=== PATIENT | female | born 1960 | race Caucasian/White ===

== ENCOUNTER 2017-01-02 13:19 | Outpatient (CLI) | payer OTHER | END 2017-01-02 23:59 | DX: E53.8 Deficiency of other specified B group vitamins (principal); D75.89 Other specified diseases of blood and blood-forming organs ==

== ENCOUNTER 2017-07-26 01:25 | Outpatient (CLI) | payer OTHER ==
[2017-07-26 19:32] LABS: BASOPHILS % (AUTO) 0.3 %; EOSINOPHILS # (AUTO) 0.2 10^3/uL (0.0-0.7); EOSINOPHILS % (AUTO) 2.2 %; HCT - HEMATOCRIT 41.1 % (37.0-47.0); HGB - HEMOGLOBIN 13.7 g/dL (12.0-16.0); LYMPHOCYTES # (AUTO) 2.1 10^3/uL (1.5-3.5); LYMPHOCYTES % (AUTO) 22.8 %; MEAN CORPUSCULAR HEMOGLOBIN 32.1 pg (27.0-31.0); MEAN CORPUSCULAR HGB CONC 33.3 g/dL (32.0-36.0); MEAN CORPUSCULAR VOLUME 96.5 fL (81.0-99.0); MEAN PLATELET VOLUME 8.6 fL (7.9-10.8); MONOCYTES # (AUTO) 0.4 10^3/uL (0.0-1.0); MONOCYTES % (AUTO) 4.3 %; NEUTROPHILS # (AUTO) 6.4 10^3/uL (1.5-6.6); NEUTROPHILS % (AUTO) 70.4 %; RED BLOOD COUNT 4.26 10^6/uL (4.20-5.40); RED CELL DISTRIBUTION WIDTH 13.3 % (12.0-15.0); UNCORRECTED WHITE BLOOD COUNT 9.1 x10^3/uL; WHITE BLOOD COUNT 9.1 x10^3/uL (4.8-10.8)
[2017-07-26 19:45] LABS: CALCIUM 9.3 mg/dL (8.5-10.3); CREATININE 0.8 mg/dL (0.4-1.0)
== END 2017-07-26 01:26 | disposition home or self-care (01) ==
LOC: LAB.N 01:25
PROVIDERS: ATTEND Family Medicine
DX: I10 Essential (primary) hypertension (principal); D75.89 Other specified diseases of blood and blood-forming organs
CPT/HCPCS: 36415; 80048; 80053; 82746; 85025

== ENCOUNTER 2018-01-09 09:39 | Outpatient (CLI) | payer OTHER ==
--- NOTE | 2018-01-09 11:13 | XRAY Report ---
THREE VIEW RIGHT SHOULDER: 01/09/2018 CLINICAL INDICATION: Pain. FINDINGS: Internal and external rotational views and a scapular Y view of the right shoulder demonstrate mild degenerative changes of the acromioclavicular joint. There is no evidence of acute fracture or dislocation. Irregularity of the distal clavicle is noted, likely representing an old, healed fracture. IMPRESSION: MILD DEGENERATIVE CHANGES OF THE ACROMIOCLAVICULAR JOINT. TD: 01/09/2018 11:12
== END 2018-01-09 09:40 | disposition home or self-care (01) ==
LOC: DI.N 09:39
PROVIDERS: ATTEND Family Medicine
DX: M19.011 Primary osteoarthritis, right shoulder (principal)

== ENCOUNTER 2018-04-22 10:33 | Outpatient (CLI) | payer OTHER ==
[2018-04-22 13:32] LABS: BASOPHILS % (AUTO) 0.5 %; EOSINOPHILS # (AUTO) 0.2 10^3/uL (0.0-0.7); EOSINOPHILS % (AUTO) 2.8 %; HGB - HEMOGLOBIN 13.5 g/dL (12.0-16.0); LYMPHOCYTES # (AUTO) 1.8 10^3/uL (1.5-3.5); LYMPHOCYTES % (AUTO) 25.5 %; MEAN CORPUSCULAR HGB CONC 33.5 g/dL (32.0-36.0); MEAN CORPUSCULAR VOLUME 95.5 fL (81.0-99.0); MEAN PLATELET VOLUME 9.1 fL (7.9-10.8); MONOCYTES # (AUTO) 0.3 10^3/uL (0.0-1.0); MONOCYTES % (AUTO) 3.9 %; NEUTROPHILS # (AUTO) 4.7 10^3/uL (1.5-6.6); NEUTROPHILS % (AUTO) 67.3 %; PLT - PLATELET COUNT 212 10^3/uL (130-450); RED BLOOD COUNT 4.21 10^6/uL (4.20-5.40); RED CELL DISTRIBUTION WIDTH 12.6 % (12.0-15.0)
[2018-04-22 13:59] LABS: THYROID STIMULATING HORMONE 3.8 uIU/mL (0.34-5.60)
[2018-04-22 14:01] LABS: FREE T4 (FREE THYROXINE) 0.9 ng/dL (0.58-1.64)
[2018-04-22 14:18] LABS: ALBUMIN 3.6 g/dL (3.2-5.5); ALBUMIN/GLOBULIN RATIO 0.9 (1.0-2.2); ALKALINE PHOSPHATASE 130 IU/L (42-121); ALT ALANINE AMINOTRANSFERASE 25 IU/L (10-60); AST ASPARTATE AMINOTRANSFERASE 23 IU/L (10-42); BILIRUBIN,TOTAL 0.5 mg/dL (0.2-1.0); BUN - BLOOD UREA NITROGEN 13 mg/dL (6-20); CALCIUM 8.8 mg/dL (8.5-10.3); CARBON DIOXIDE - CO2 25 mmol/L (21-32); CHLORIDE 105 mmol/L (101-111); CHOL/HDL RATIO 3.6 (<4.4); CHOLESTEROL 189 mg/dL; CREATININE 0.8 mg/dL (0.4-1.0); GFR - MDRD 74 (>89); GLUCOSE 103 mg/dL (70-100); HDL CHOLESTEROL 52 mg/dL; LDL CHOLESTEROL,CALCULATED 110 mg/dL; LDL/HDL RATIO 2.1 (<4.4); SODIUM 137 mmol/L (135-145); TOTAL PROTEIN 7.4 g/dL (6.7-8.2); VLDL CHOLESTEROL 27 mg/dL
== END 2018-04-22 10:34 | disposition home or self-care (01) ==
LOC: LAB.N 10:33
PROVIDERS: ATTEND Family Medicine
DX: R53.83 Other fatigue (principal); E66.9 Obesity, unspecified
CPT/HCPCS: 36415; 80050; 80061; 83721; 84439

== ENCOUNTER 2018-10-17 08:31 | Outpatient (CLI) | payer OTHER ==
--- NOTE | 2018-10-17 11:50 | Mammography Report ---
Reason: UNSPECIFIED LUMP IN THE RIGHT BREAST,UPPER OUTER Q Procedure Date: 10/17/2018 Accession Number: [id number] / [id number] Procedure: ELENA - Diagnostic Dig Bilat CPT Code: FULL RESULT: EXAM: Diagnostic Dig Bilat DATE: 10/17/2018 9:51 AM CLINICAL HISTORY: Painful palpable lump in the right breast. Diagnostic mammogram. TECHNIQUE: Bilateral CC and MLO as well as laterally exaggerated cc views were obtained. Focused right breast ultrasound was performed. COMPARISON: 04/08/2014 through 02/20/2010. FINDINGS: The breasts demonstrate diffuse fatty replacement bilaterally. There has been no interval change in the right breast 10:00 1.2 cm well-circumscribed nodule with fatty hilum, 8 cm from the nipple. Mammographic appearance is consistent with a lymph node. Focused right breast ultrasound reveals a normal-appearing lymph node which measures up to 1.2 cm in the right breast at the same location. No suspicious mass, calcification or architectural distortion is identified. IMPRESSION: Benign findings RECOMMENDATION: Recommend routine annual Screening mammography unless otherwise clinically indicated. BIRADS CATEGORY 2: Benign findings STANDARD QUALIFYING STATEMENTS: 1. This examination was not reviewed with the aid of Computer-Aided Detection (CAD). 2. A negative or benign imaging report should not delay biopsy if clinically suspicious findings are present. Consider surgical consultation if warrented. More than 5% of cancers are not identified by imaging. 3. Dense breasts may obscure an underlying neoplasm. 4. This examination was reviewed with the aid of 3D imaging (tomography).
== END 2018-10-17 08:32 | disposition home or self-care (01) ==
LOC: DI 08:31
PROVIDERS: ATTEND Family Medicine
DX: N63.11 Unspecified lump in the right breast, upper outer quadrant (principal); N64.4 Mastodynia
CPT/HCPCS: 76642; 77066

== ENCOUNTER 2018-10-29 08:00 | Outpatient (CLI) | payer OTHER ==
[2018-10-29 19:07] LABS: CALCIUM 8.7 mg/dL (8.5-10.3); CREATININE 0.8 mg/dL (0.4-1.0)
== END 2018-10-29 23:59 | disposition home or self-care (01) ==
LOC: LAB.N 08:00
PROVIDERS: ATTEND Physician Assistant Medical
DX: I10 Essential (primary) hypertension (principal)
CPT/HCPCS: 36415; 80048

== ENCOUNTER 2018-10-29 12:31 | Outpatient (CLI) | payer OTHER ==
--- NOTE | 2018-10-30 15:22 | DEXA Report ---
Reason: POSTMENOPAUSAL STATE Procedure Date: 10/29/2018 Accession Number: [id number] / [id number] Procedure: DEX - Dexa Spine and/or Hip CPT Code: FULL RESULT: EXAM: Dexa Spine and/or Hip DATE: 10/29/2018 2:39 PM CLINICAL HISTORY: POSTMENOPAUSAL STATE TECHNIQUE: Dual energy x-ray absorptiometry (DXA) was performed on a [employer] System. Regions measured are the AP Spine, femoral neck, and if needed forearm. COMPARISON: None. In accordance with the International Society for Clinical Densitometry (ISCD) guidelines, data from previous exams may be reanalyzed using current recommendations and techniques. This is done to allow a more accurate basis for comparison with the current study. FINDINGS: The data for the lumbar spine is as follows: BMD (g/cm/cm) T-SCORE Z-SCORE REGION L1 1.087 -0.4 -0.5 L2 1.165 -0.3 -0.4 L3 1.204 0.0 -0.1 L4 1.188 -0.1 -0.2 TOTAL 1.164 -0.1 -0.3 NOTE: All evaluable vertebrae are used for classification The data for the hip is as follows: BMD (g/cm/cm) T-SCORE Z-SCORE REGION Neck 0.839 -1.4 -1.1 TOTAL 0.983 -0.2 -0.2 NOTE: The femoral neck or total proximal femur, whichever is lowest, is used for classification. IMPRESSION: THE WHO CLASSIFICATION BASED ON THE INTERNATIONAL REFERENCE STANDARD IS OSTEOPENIA. THE FRACTURE RISK IS INCREASED. RECOMMENDATION: Patients with diagnosis of osteoporosis or osteopenia should have regular bone mineral density assessment. For those eligible for Medicare, routine testing is allowed once every 2 years. Testing frequency can be increased for patients who have rapidly progressing disease or for those who are receiving medical therapy to restore bone mass. COMMENT: World Health Organization (WHO) definitions for osteoporosis and osteopenia: NORMAL BMD: T-score at -1.0 or higher, fracture risk is low OSTEOPENIA BMD: T-score between -1.0 and -2.5, fracture risk is increased. OSTEOPOROSIS BMD: T-score at -2.5 or lower, fracture risk is high. National Osteoporosis Foundation recommends: 1. Obtain adequate dietary calcium (at least 1200 mg per day) and vitamin D (400-800 international units per day). 2. Participate, as appropriate, in regular weightbearing and muscle-strengthening exercise. 3. Avoid tobacco use and reduce alcohol and caffeine intake. 4. For more detailed information see the website at www.NOF.org.
== END 2018-10-29 12:32 | disposition home or self-care (01) ==
LOC: DI 12:31
PROVIDERS: ATTEND Family Medicine
DX: M85.89 Other specified disorders of bone density and structure, multiple sites (principal); Z78.0 Asymptomatic menopausal state; I10 Essential (primary) hypertension
CPT/HCPCS: 36415; 77080; 80048

== ENCOUNTER 2020-09-29 23:58 | Observation (INO) | payer OTHER ==
--- NOTE | 2020-09-30 00:21 | ED Physician Documentation ---
PD HPI DYSPNEA - Stated complaint Stated Complaint: SOA - History obtained from History obtained from: Patient - History of Present Illness Timing - onset: How many days ago (4-5) Timing - duration: Days Timing - details: Gradual onset, Waxing and waning Pain level now: 3 (generalized myalgias) Improved by: Rest Worsened by: Exertion Associated symptoms: Fever, Cough. No: Wheezing, Chest pain / discomfort, Bilateral edema, Unilateral edema Recently seen: Not recently seen - Additional information Additional information: c/o 4-5 days of gradual onset but steadily progressive shortness of breath and dyspnea on exertion, cough that is minimally productive despite sensation of chest congestion, chills/diaphoresis and fever. She tells me Tmax was earlier tonight and was 106.6 (she initially says "one point six point six"; when I ask her to repeat, she says "one hundred and six point six". She told RN 104.6). Review of Systems Constitutional: reports: Fever, Chills, Myalgias, Fatigue, Sweats Eyes: reports: Reviewed and negative Ears: reports: Reviewed and negative Nose: reports: Reviewed and negative Throat: reports: Reviewed and negative Cardiac: reports: Reviewed and negative Respiratory: reports: Dyspnea, Cough. denies: Hemoptysis, Wheezing GI: reports: Reviewed and negative : denies: Dysuria, Frequency Skin: reports: Reviewed and negative Musculoskeletal: reports: Reviewed and negative Neurologic: reports: Generalized weakness. 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 - Present Medications Home Medications: Ambulatory Orders Medication Instructions Recorded Confirmed Loratadine 10 mg PO DAILY 07/30/15 09/30/20 Calcium Carbonate [Tums (Calcium 500 - 1,000 mg PO BID PRN 09/30/20 09/30/20 Carbonate 500mg)] Multivit-Min/Iron/Folic/Lutein 1 each PO DAILY 09/30/20 09/30/20 [Multivitamin Women 50 Plus Tab] Terbinafine [Lamisil] 250 mg PO DAILY 09/30/20 09/30/20 - Allergies Allergies/Adverse Reactions: Allergies Allergy/AdvReac Type Severity Reaction Status Date / Time bee venom protein (honey bee) Allergy Severe Anaphylaxis Verified 09/30/20 08:25 Penicillins Allergy Severe Respiratory Verified 07/30/15 21:43 aspirin Allergy Intermediate Hives Verified 07/30/15 21:44 lanolin AdvReac Edema Verified 07/30/15 22:04 latex AdvReac Edema Verified 07/30/15 22:04 - Social History Does the pt smoke?: Yes Smoking Status: Current every day smoker Does the pt drink ETOH?: Yes Does the pt have substance abuse?: No - Immunizations Immunizations are current?: Yes PD ED PE NORMAL - Vitals Vital signs reviewed: Yes - General General: Alert and oriented X 3, Other (morbidly obese; dyspneic with simple conversation but able to speak in full sentences) - HEENT HEENT: Moist mucous membranes - Neck Neck: Supple, no meningeal sign - Cardiac Cardiac: RRR, No murmur - Abdomen Abdomen: Soft, Non tender - Derm Derm: Normal color, Warm and dry - Extremities Extremities: No edema - Neuro Neuro: Alert and oriented X 3 PD ED PE EXPANDED - Respiratory Respiratory: Wheezing (bilateral course expiratory wheezing. bibasilar rhonchi), Rhonchi Results - Vitals Vitals: Oxygen O2 Source Room air - EKG (time done) No standard instances Rate: Rate (enter#) (92) Rhythm: NSR [place]: LAD Intervals: Normal [place] QRS: Poor R wave progression Ischemia: Normal ST segments - Labs Labs: Microbiology 09/30/20 01:15 Blood Culture - Preliminary Blood NO GROWTH AFTER 1 DAY 09/30/20 00:20 Blood Culture - Preliminary Blood NO GROWTH AFTER 1 DAY Laboratory Tests 09/30/20 09/30/20 09/30/20 00:20 00:20 00:20 WBC 9.9 RBC 4.25 Hgb 14.0 Hct 41.0 MCV 96.5 MCH 32.9 H MCHC 34.1 RDW 13.2 Plt Count 218 MPV 9.5 Neut # (Auto) 8.0 H Lymph # (Auto) 1.1 L [place] # (Auto) 0.6 Eos # (Auto) 0.0 Baso # (Auto) 0.0 Absolute Nucleated RBC 0.00 Nucleated RBC % 0.0 Sodium 131 L Potassium 3.5 Chloride 97 L Carbon Dioxide 24 Anion Gap 10.0 BUN 8 Creatinine 1.0 Estimated GFR (MDRD) 57 L Glucose 122 H Lactic Acid 1.0 Calcium 8.7 Total Bilirubin 1.1 H AST 18 ALT 28 Alkaline Phosphatase 123 H Total Protein 7.3 Albumin 3.7 Globulin 3.6 Albumin/Globulin Ratio 1.0 Urine Color Urine Clarity Urine pH Ur Specific [place] Urine Protein Urine Glucose (UA) Urine Ketones Urine Occult Blood Urine Nitrite Urine Bilirubin Urine Urobilinogen Ur Leukocyte Esterase Urine RBC Urine WBC Ur Squamous Epith Cells Urine Bacteria Urine Culture Comments Nasal Adenovirus (PCR) Nasal B. parapertussis DNA (PCR) Nasal Coronavir 229E PCR Nasal Coronavir HKU1 PCR Nasal Coronavir NL63 PCR Nasal Coronavir OC43 PCR Nasal Enterovir/Rhinovir PCR Nasal Influenza B PCR Nasal Influenza A PCR Nasal Parainfluen 1 PCR Nasal Parainfluen 2 PCR Nasal Parainfluen 3 PCR Nasal Parainfluen 4 PCR Nasal RSV (PCR) Nasal B.pertussis DNA PCR Nasal C.pneumoniae (PCR) Yaaz Human Metapneumo PCR Nasal M.pneumoniae (PCR) Nasal SARS-CoV-2 (PCR) 09/30/20 09/30/20 00:20 02:18 WBC RBC Hgb Hct MCV MCH MCHC RDW Plt Count MPV Neut # (Auto) Lymph # (Auto) [place] # (Auto) Eos # (Auto) Baso # (Auto) Absolute Nucleated RBC Nucleated RBC % Sodium Potassium Chloride Carbon Dioxide Anion Gap BUN Creatinine Estimated GFR (MDRD) Glucose Lactic Acid Calcium Total Bilirubin AST ALT Alkaline Phosphatase Total Protein Albumin Globulin Albumin/Globulin Ratio Urine Color YELLOW Urine Clarity HAZY Urine pH 6.5 Ur Specific [place] 1.010 Urine Protein TRACE Urine Glucose (UA) NEGATIVE Urine Ketones NEGATIVE Urine Occult Blood MODERATE H Urine Nitrite NEGATIVE Urine Bilirubin NEGATIVE Urine Urobilinogen 0.2 (NORMAL) Ur Leukocyte Esterase NEGATIVE Urine RBC 6-10 H Urine WBC 0-3 Ur Squamous Epith Cells FEW Squamous Urine Bacteria Few Urine Culture Comments NOT INDICATED Nasal Adenovirus (PCR) NOT DETECTED Nasal B. parapertussis DNA (PCR) NOT DETECTED Nasal Coronavir 229E PCR NOT DETECTED Nasal Coronavir HKU1 PCR NOT DETECTED Nasal Coronavir NL63 PCR NOT DETECTED Nasal Coronavir OC43 PCR NOT DETECTED Nasal Enterovir/Rhinovir PCR NOT DETECTED Nasal Influenza B PCR NOT DETECTED Nasal Influenza A PCR NOT DETECTED Nasal Parainfluen 1 PCR NOT DETECTED Nasal Parainfluen 2 PCR NOT DETECTED Nasal Parainfluen 3 PCR NOT DETECTED Nasal Parainfluen 4 PCR NOT DETECTED Nasal RSV (PCR) NOT DETECTED Nasal B.pertussis DNA PCR NOT DETECTED Nasal C.pneumoniae (PCR) NOT DETECTED Ayaz Human Metapneumo PCR NOT DETECTED Nasal M.pneumoniae (PCR) NOT DETECTED Nasal SARS-CoV-2 (PCR) NOT DETECTED - Rads (name of study) chest xray Radiology: Prelim report reviewed, See rad report PD MEDICAL DECISION MAKING - ED course Complexity details: reviewed results, re-evaluated patient, considered differential, d/w patient Departure - Departure Disposition: ED Place in Observation Clinical Impression: Pneumonia Qualifiers: Pneumonia type: due to unspecified organism Laterality: left Lung location: unspecified part of lung Qualified Code(s): J18.9 - Pneumonia, unspecified organism Condition: Stable Discharge Date/Time: 09/30/20 04:39
[2020-09-30 00:30] LABS: BASOPHILS % (AUTO) 0.3 %; EOSINOPHILS % (AUTO) 0.1 %; LYMPHOCYTES # (AUTO) 1.1 10^3/uL (1.5-3.5); LYMPHOCYTES % (AUTO) 11.6 %; MEAN CORPUSCULAR HEMOGLOBIN 32.9 pg (27.0-31.0); MEAN CORPUSCULAR HGB CONC 34.1 g/dL (32.0-36.0); MEAN CORPUSCULAR VOLUME 96.5 fL (81.0-99.0); MEAN PLATELET VOLUME 9.5 fL (7.9-10.8); MONOCYTES # (AUTO) 0.6 10^3/uL (0.0-1.0); MONOCYTES % (AUTO) 5.6 %; NEUTROPHILS % (AUTO) 81.3 %; PLT - PLATELET COUNT 218 10^3/uL (130-450); RED BLOOD COUNT 4.25 10^6/uL (4.20-5.40); RED CELL DISTRIBUTION WIDTH 13.2 % (12.0-15.0); WHITE BLOOD COUNT 9.9 x10^3/uL (4.8-10.8)
[2020-09-30 00:41] LABS: ALBUMIN 3.7 g/dL (3.2-5.5); BILIRUBIN,TOTAL 1.1 mg/dL (0.2-1.0); CALCIUM 8.7 mg/dL (8.5-10.3); TOTAL PROTEIN 7.3 g/dL (6.7-8.2)
[2020-09-30] MEDS ORDERED: ALBUTEROL 1 PUFF INH STA (01:11)
[2020-09-30 01:24] LABS: C. PNEUMONIAE- RESP PCR PANEL NOT DETECTED
[2020-09-30 02:25] LABS: BILIRUBIN,URINE NEGATIVE (NEGATIVE); GLUCOSE, URINE (UA) NEGATIVE (NEGATIVE); KETONES,URINE (UA) NEGATIVE (NEGATIVE); LEUKOCYTE ESTERASE, URINE NEGATIVE (NEGATIVE); NITRITE,URINE NEGATIVE (NEGATIVE); OCCULT BLOOD,URINE MODERATE (NEGATIVE); PH,URINE 6.5 PH (5.0-7.5); PROTEIN,URINE TRACE mg/dL (NEGATIVE); UROBILINOGEN,URINE 0.2 (NORMAL) E.U./dL (NORMAL)
[2020-09-30 02:29] LABS: CLARITY,URINE HAZY (CLEAR)
[2020-09-30 02:31] LABS: BACTERIA,URINE Few /HPF (None Seen); SQUAMOUS EPITHELIAL CELL,UR FEW Squamous (<= Few)
[2020-09-30] MEDS ORDERED: IBUPROFEN 400 MG TABLET PO STA (02:38)
[2020-09-30] MEDS ORDERED: levoFLOXacin 750 MG/150 ML 750 MG/150 ML BAG IV STA (02:40)
[2020-09-30] MEDS ORDERED: IBUPROFEN 400 MG TABLET PO PRN (03:32)
[2020-09-30] MEDS ORDERED: ONDANSETRON 4 MG/2 ML VIAL IVP PRN (03:32)
[2020-09-30] MEDS ORDERED: SODIUM CHLORIDE FLUSH 0.9% 10 ML SYRINGE IVP PRN (03:32)
--- NOTE | 2020-09-30 03:42 | HISTORY & PHYSICAL EXAMINATION ---
Chief Complaint - Chief Complaint Chief Complaint: Fever, dyspnea, cough History of Present Illness - Admitted From Admitted From:: [facility] ED - History Obtained From Records Reviewed: Yes History obtained from: Patient - History of Present Illness HPI Comment/Other: Patient is a 59-year-old morbidly obese female with medical history significant for hypertension, GERD, hyperlipidemia, morbid obesity, asthma and onychomycosis who presented to the ED with complaint of dyspnea, productive cough and intermittent fever for the past 5 days. She reports wheezing as well. In the ED she was found to have a temperature of 38.9 C. The wheezing was appreciable on auscultation of her lungs and she appeared ill/lethargic. She was noted to be mildly tachycardic with a heart rate as high as 95. Work-up showed a normal lactic acid and normal white blood cell count. However chest x- ray Showed a lingular pneumonia. As a result the patient was presented for admission for further treatment. She reports some musculoskeletal chest pain. She also reports mild nausea and an episode of vomiting yesterday at home. She denies abdominal pain. 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 The patient's mother in 2008 of stomach cancer. Patient's father of pancreatic cancer at a young age. Social History Notes: According to records she lives in [place] in a mobile line home with her with whom she has been for 36 years. They have 2 children. She has 1 daughter who lives on [facility] and a son who lives in [place]. The patient was originally born in [facility] but moved to [facility] when she was younger and was raised in [place]. She has a history of smoking half a pack of cigarettes a day and has been doing so for 25 years. She quit for about 3 months once but then resumed smoking. She drinks alcohol occasionally. Her drink of choice is check [place]. She does not use any recreational substances. - POLST Patient has POLST: No POLST Status: Full Code Meds/Allgy - Home Medications Home Medications: Ambulatory Orders Medication Instructions Recorded Confirmed Calcium Carbonate [Tums] 1 mg PO DAILY 07/30/15 09/30/20 Lisinopril 1 mg PO DAILY 07/30/15 09/30/20 Loratadine 1 mg PO DAILY 07/30/15 09/30/20 Simvastatin 1 mg PO DAILY 07/30/15 09/30/20 Terbinafine [Lamisil] 250 mg PO DAILY 09/30/20 09/30/20 - Allergies Allergies/Adverse Reactions: Allergies Allergy/AdvReac Type Severity Reaction Status Date / Time Penicillins Allergy Severe Respiratory Verified 07/30/15 21:43 aspirin Allergy Intermediate Hives Verified 07/30/15 21:44 lanolin AdvReac Edema Verified 07/30/15 22:04 latex AdvReac Edema Verified 07/30/15 22:04 bee stings Allergy Severe Edema Uncoded 07/30/15 21:44 Review of Systems - Constitutional Constitutional: reports: Fever, Weakness. denies: Fatigue - Eyes Eyes: denies: Pain, Vision loss, Dipolpia - Ears, Nose & Throat Ears, Nose & Throat: denies: Ear pain, Sore throat, Hoarseness - Cardiovascular Cariovascular: denies: Irregular heart rate, Palpitations, Chest pain, Edema, Lightheadedness, Syncope, Exertional dyspnea - Respiratory Respiratory: reports: Cough, Sputum production, Wheezing, SOB at rest - Gastrointestinal Gastrointestinal: reports: Nausea, Vomiting. denies: Abdominal pain, Abdominal distention - Genitourinary Genitourinary: denies: Dysuria, Frequency, Urgency - Musculoskeletal Musculoskeletal: denies: Muscle pain, Back pain, Muscle aches - Integumentary Integumentary: denies: Rash, Pruritis, Lesions - Neurological Neurological: reports: General weakness. denies: Focal weakness, Headache - Psychiatric Psychiatric: denies: Depression, Anxiety - Endocrine Endocrine: denies: Polyuria, Polydypsia - Hematologic/Lymphatic Hematologic/Lymphatic: denies: Anemia, Bruising Prior Level of Functionality: She is independent of activities of daily living Exam - Vital Signs Vital Signs: Vital Signs x48h Temp Pulse Resp BP Pulse Ox 09/30/20 03:10 95 17 156/79 H 92 09/30/20 03:00 38.9 C H 95 17 156/79 H 93 09/30/20 02:30 38.9 C H 95 16 139/83 H 94 09/30/20 02:00 38.9 C H 91 18 159/82 H 93 09/30/20 01:30 38.9 C H 82 20 159/83 H 95 09/30/20 01:08 39.7 C H 92 23 167/70 H 95 09/30/20 01:00 91 23 167/70 H 92 09/30/20 00:41 39.7 C H 95 25 H 162/94 H 95 09/30/20 00:03 39.7 C H 95 25 H 162/94 H 95 - Physical Exam General Appearance: positive: Alert, Mild distress Eyes Bilateral: positive: PERRL, EOMI ENT: positive: Dry mucous membranes Neck: positive: Trachea midline Respiratory: positive: Wheezes, Other (Coarse breath sounds) Cardiovascular: positive: Regular rate & rhythm, No murmur Abdomen: positive: Non-tender, No organomegaly, Nml bowel sounds. negative: Guarding, Rebound Back: positive: Nml inspection Skin: positive: Color nml, No rash, Warm, Dry Extremities: positive: Non-tender, Full ROM, Nml appearance Neurologic/Psychiatric: positive: Oriented x3, Mood/affect nml Conclusion/Plan - Problem List (1) Pneumonia Conclusion/Plan: A lingular pneumonia was noted on chest x-ray. Patient was started on Levaquin 750 mg IV daily. We will continue. DuoNeb breathing treatment has been ordered as needed. We will use ibuprofen as needed for fever. The patient is reluctant to take Tylenol for concern about Lamisil and liver. Covid 19 test was negative. We will order Robitussin for cough. Qualifiers: Pneumonia type: due to unspecified organism Laterality: left Lung loca tion: unspecified part of lung Qualified Code(s): J18.9 - Pneumonia, unspecified organism (2) Onychomycosis Conclusion/Plan: Patient is on Lamisil. (3) Morbid obesity Conclusion/Plan: Chronic. Patient has a BMI of 56.5. - Lab Results Fish Bones: 09/30/20 00:20 09/30/20 00:20 Core Measures - Anticipated LOS I expect patient to be DC'd or transferred within 96 hours.: Yes - DVT/VTE - Prophylaxis VTE/DVT Device ordered at admit?: Yes VTE/DVT Prophylaxis med ordered at admit?: Yes
[2020-09-30] MEDS ORDERED: guaiFENesin 100 MG/5 ML UDC PO PRN (03:51)
[2020-09-30] MEDS: SODIUM CHLORIDE 0.9% 1,000 ML IV SCH ×2 (05:01→15:08)
[2020-09-30 05:25] LABS: BASOPHILS % (AUTO) 0.3 %; EOSINOPHILS % (AUTO) 0.1 %; HGB - HEMOGLOBIN 13.2 g/dL (12.0-16.0); LYMPHOCYTES # (AUTO) 1.3 10^3/uL (1.5-3.5); LYMPHOCYTES % (AUTO) 11.6 %; MEAN CORPUSCULAR HEMOGLOBIN 32.4 pg (27.0-31.0); MEAN CORPUSCULAR HGB CONC 33.1 g/dL (32.0-36.0); MEAN PLATELET VOLUME 9.5 fL (7.9-10.8); MONOCYTES # (AUTO) 0.6 10^3/uL (0.0-1.0); MONOCYTES % (AUTO) 5.4 %; NEUTROPHILS # (AUTO) 9.2 10^3/uL (1.5-6.6); NEUTROPHILS % (AUTO) 81.4 %; PLT - PLATELET COUNT 205 10^3/uL (130-450); RED BLOOD COUNT 4.07 10^6/uL (4.20-5.40); RED CELL DISTRIBUTION WIDTH 13.2 % (12.0-15.0); WHITE BLOOD COUNT 11.3 x10^3/uL (4.8-10.8)
[2020-09-30 05:34] LABS: CALCIUM 8.6 mg/dL (8.5-10.3)
[2020-09-30] MEDS: PANTOPRAZOLE 40 MG TABLET PO SCH (06:58)
[2020-09-30] MEDS ORDERED: POTASSIUM CHLORIDE 20 MEQ TABLET PO ONE (07:01)
[2020-09-30] MEDS: IPRATROPIUM/ALBUTEROL 3 ML NEB INH PRN ×2 (07:20→13:12)
--- NOTE | 2020-09-30 07:46 | XRAY Report ---
PROCEDURE: Chest 2 View X-Ray INDICATIONS: cough, fever TECHNIQUE: 2 view(s) of the chest. COMPARISON: None. FINDINGS: Surgical changes and devices: None. Lungs and pleura: No pleural effusions or pneumothorax. Focal opacity noted in the lingula left uppe r lobe Mediastinum: Mediastinal contours are normal. Heart size is normal. Bones and chest wall: No suspicious bony abnormalities. Soft tissues appear unremarkable. IMPRESSION: Pneumonia involving the lingula of the left upper lobe. Reviewed by: Gretchen Barajas MD, PhD on 09/30/2020 7:44 AM [facility] Approved by: Gretchen Barajas MD, PhD on 09/30/2020 7:44 AM [facility] Station ID: [id number]
[2020-09-30] MEDS ORDERED: ALBUTEROL NEB 2.5 MG/3 ML INH PRN (08:23)
[2020-09-30] MEDS: LORATADINE 10 MG TABLET PO SCH (11:14)
[2020-09-30] MEDS: ENOXAPARIN 40 MG/0.4 ML SYRINGE SUBQ SCH (11:14)
[2020-09-30] MEDS: SODIUM CHLORIDE FLUSH 0.9% 10 ML SYRINGE IVP SCH ×2 (11:14→16:36)
[2020-09-30] MEDS: NYSTATIN POWDER 15 GM TOP SCH ×2 (11:14→21:23)
--- NOTE | 2020-09-30 11:39 | PHARMACY PROGRESS NOTE ---
- Best Possible Medication History Admit Date and Time: 09/30/20 0332 Processed by: Pharmacy Medication History completed: Yes Patient Interview: Completed Secondary Source(s): Physician records, Pharmacy records, Insurance records As the person ultimately responsible for medication therapy, providers are able to order a medication from an existing home medication list in [facility] via the "Reconcile Routine" prior to Confirmation of that medication by computer support specialist. Such practice is discouraged except when the physician, in their clinical judgment, deems that a medical need exists for a medication without regard to previous use.
[2020-10-01] MEDS: SODIUM CHLORIDE FLUSH 0.9% 10 ML SYRINGE IVP SCH ×2 (00:09→09:30)
[2020-10-01 05:10] LABS: BASOPHILS % (AUTO) 0.2 %; EOSINOPHILS # (AUTO) 0.1 10^3/uL (0.0-0.7); EOSINOPHILS % (AUTO) 1.5 %; HGB - HEMOGLOBIN 12.5 g/dL (12.0-16.0); LYMPHOCYTES # (AUTO) 1.3 10^3/uL (1.5-3.5); LYMPHOCYTES % (AUTO) 20.2 %; MEAN CORPUSCULAR HEMOGLOBIN 32.6 pg (27.0-31.0); MEAN CORPUSCULAR HGB CONC 33.2 g/dL (32.0-36.0); MEAN CORPUSCULAR VOLUME 97.9 fL (81.0-99.0); MEAN PLATELET VOLUME 9.4 fL (7.9-10.8); MONOCYTES # (AUTO) 0.6 10^3/uL (0.0-1.0); MONOCYTES % (AUTO) 8.5 %; NEUTROPHILS # (AUTO) 4.5 10^3/uL (1.5-6.6); NEUTROPHILS % (AUTO) 68.1 %; PLT - PLATELET COUNT 190 10^3/uL (130-450); RED BLOOD COUNT 3.84 10^6/uL (4.20-5.40); RED CELL DISTRIBUTION WIDTH 13.5 % (12.0-15.0); WHITE BLOOD COUNT 6.6 x10^3/uL (4.8-10.8)
[2020-10-01 05:27] LABS: CALCIUM 8.4 mg/dL (8.5-10.3); CREATININE 0.7 mg/dL (0.4-1.0)
[2020-10-01] MEDS: PANTOPRAZOLE 40 MG TABLET PO SCH (06:39)
--- NOTE | 2020-10-01 08:25 | Discharge Plan ---
Discharge Plan Problem Reviewed?: Yes Disposition: Home, Self Care Condition: Stable Prescriptions: Lactobacillus Acidophilus [Acidophilus Lactobacilli] 1 each PO DAILY #5 capsule Levofloxacin 750 mg PO DAILY #5 tablet Nicotine 14 mg Patch [Nicoderm] 1 each TOP Q24H #7 patch Diet: Regular (A weight-loss diet is recommended) Activity Restrictions: Activity as Tolerated Shower Restrictions: No Driving Restrictions: No Instruction Topics: Pneumonia, Pneumonia [facility] Health Concerns: You were hospitalized to start treatment for a pneumonia. You are being discharged to take several more days of antibiotic and a Probiotic to prevent diarrhea. Also a prescription for Mucinex was offered, but it makes you vomit so it was cancelled. Please stop smoking. A prescription for Nicotine patches has been ordered. All new prescriptions were electronically sent to your [facility] pharmacy in [place]. Please resume all your other pre-hospital medications. If you are taking a blood pressure pill and medicine for gastric reflux, resume those. You should see your Primary Care Provider in the next 5 to 10 days for hospital follow-up, to assure the pneumonia has resolved. Plan of Treatment: As above. Care Goals: Improvement in symptoms and stabilization are the goals. Assessment: Patient understands and is agreeable with the plan. Instructions provided at discharge for reminder. Additional Instructions or Follow Up instructions: If you have new or worsening symptoms, call your PCP for advice or come to the ED. No Smoking: If you smoke, Please STOP! Call for help.
--- NOTE | 2020-10-01 08:30 | DISCHARGE SUMMARY ---
Discharge Summary Admit Date: 09/30/20 Discharge Date: 10/01/20 Discharging Provider: Christiane Godinez MD Primary Care Provider: Ivy Bertrand NP Code Status: Attempt Resuscitation Condition at Discharge: Stable Discharge Disposition: 01 Home, Self Care - HPI History of Present Illness: From the admission H&P of Dr Nicole Mcghee: Patient is a 59-year-old morbidly obese female with medical history significant for hypertension, GERD, hyperlipidemia, morbid obesity, asthma and onychomycosis who presented to the ED with complaint of dyspnea, productive cough and intermittent fever for the past 5 days. She reports wheezing as well. In the ED she was found to have a temperature of 38.9 C. The wheezing was appreciable on auscultation of her lungs and she appeared ill/lethargic. She was noted to be mildly tachycardic with a heart rate as high as 95. Work-up showed a normal lactic acid and normal white blood cell count. However chest x- ray showed a lingular pneumonia. As a result the patient was presented for admission for further treatment. She reports some musculoskeletal chest pain. She also reports mild nausea and an episode of vomiting yesterday at home. She denies abdominal pain. - HOSPITAL COURSE Hospital Course: (1) Pneumonia A left lingular pneumonia was noted on chest x-ray. Patient was started on Levaquin 750 mg IV daily. DuoNeb inhalation by nebulizer was ordered prn, she declined it. We ordered ibuprofen as needed for fever, since the patient was reluctant to take Tylenol for concern about Lamisil and liver. Covid 19 test was negative. There was no fever for over 24 hours. She was discharged home to take Levaquin 750 mg p.o. daily with a Probiotic for the next 5 days. (2) Onychomycosis Patient is on Lamisil which was continued. (3) HTN Her admission H&P says she has hypertension and was on lisinopril however the pharmacist review saw that she is currently not getting refills. Please resume if needed. (4) GERD She carries a diagnosis of GERD but is not on medications for this. Please resume if indicated. (5) Morbid obesity Patient has a BMI of 50.3. A weight reduction diet is strongly advised. (6) Tobacco use Scription for nicotine patches were was ordered at discharge and she was advised to quit. - ALLERGIES Allergies/Adverse Reactions: Allergies Allergy/AdvReac Type Severity Reaction Status Date / Time bee venom protein (honey bee) Allergy Severe Anaphylaxis Verified 09/30/20 08:25 Penicillins Allergy Severe Respiratory Verified 07/30/15 21:43 aspirin Allergy Intermediate Hives Verified 07/30/15 21:44 lanolin AdvReac Edema Verified 07/30/15 22:04 latex AdvReac Edema Verified 07/30/15 22:04 - MEDICATIONS Home Medications: Ambulatory Orders Medication Instructions Recorded Confirmed Loratadine 10 mg PO DAILY 07/30/15 09/30/20 Calcium Carbonate [Tums (Calcium 500 - 1,000 mg PO BID PRN 09/30/20 09/30/20 Carbonate 500mg)] Multivit-Min/Iron/Folic/Lutein 1 each PO DAILY 09/30/20 09/30/20 [Multivitamin Women 50 Plus Tab] Terbinafine [Lamisil] 250 mg PO DAILY 09/30/20 09/30/20 Lactobacillus Acidophilus 1 each PO DAILY #5 capsule 10/01/20 [Acidophilus Lactobacilli] Levofloxacin 750 mg PO DAILY #5 tablet 10/01/20 Nicotine 14 mg Patch [Nicoderm] 1 each TOP Q24H #7 patch 10/01/20 - PHYSICAL EXAM AT DISCHARGE General Appearance: positive: Alert Eyes Bilateral: positive: Normal inspection, EOMI ENT: positive: ENT inspection nml, No signs of dehydration Neck: positive: Other (Obese) Respiratory: positive: No respiratory distress, Rhonchi, Other (Very wet and congested cough) Cardiovascular: positive: Regular rate & rhythm, No murmur Abdomen: positive: Other (Obese with pannus) Skin: positive: Warm, Dry Extremities: positive: No pedal edema Neurologic/Psychiatric: positive: Oriented x3, Motor nml - LABS Result Diagrams: 10/01/20 04:50 10/01/20 04:50 - DIAGNOSTIC IMAGING Diagnostic Imaging Results: Final report reviewed - FOLLOW UP Follow Up: See PCP in 5 to 10 days for hospital follow-up. - TIME SPENT Time Spent in Discharge (Minutes): 35
[2020-10-01] MEDS ORDERED: TERBINAFINE 250 MG TABLET PO SCH (09:00)
[2020-10-01 09:01] VITALS: BP 124/88
[2020-10-01] MEDS: ENOXAPARIN 40 MG/0.4 ML SYRINGE SUBQ SCH (09:28)
[2020-10-01] MEDS: LORATADINE 10 MG TABLET PO SCH (09:28)
[2020-10-01] MEDS: levoFLOXacin 750 MG/150 ML 750 MG/150 ML BAG IV SCH ×2 (09:29→10:02)
[2020-10-01] MEDS: NYSTATIN POWDER 15 GM TOP SCH (09:36)
[2020-10-01] MEDS ORDERED: levoFLOXacin 250 MG TABLET PO ONE (10:29)
== END 2020-10-01 14:30 | disposition home or self-care (01) ==
LOC: ED 23:58 → MS3 09-30 03:32
PROVIDERS: ADMIT Internal Medicine; ATTEND Internal Medicine
DX: J18.9 Pneumonia, unspecified organism (principal); B35.1 Tinea unguium; I10 Essential (primary) hypertension; K21.9 Gastro-esophageal reflux disease without esophagitis; E66.01 Morbid (severe) obesity due to excess calories; Z68.43 Body mass index [BMI] 50.0-59.9, adult; F17.210 Nicotine dependence, cigarettes, uncomplicated; Z20.828 Contact with and (suspected) exposure to other viral communicable diseases
CPT/HCPCS: 0202U; 36415; 71046; 80048; 80053; 81001; 83605; 85025; 87040; 93005; 94640; 94664; 96365; 96372; 99284; 99285; A9270; G0378; J1650; 87086

== ENCOUNTER 2020-10-10 08:20 | Outpatient (CLI) | payer OTHER ==
[2020-10-10 11:50] LABS: BASOPHILS % (AUTO) 0.5 %; EOSINOPHILS # (AUTO) 0.1 10^3/uL (0.0-0.7); EOSINOPHILS % (AUTO) 1.6 %; HGB - HEMOGLOBIN 13.7 g/dL (12.0-16.0); LYMPHOCYTES # (AUTO) 2.3 10^3/uL (1.5-3.5); LYMPHOCYTES % (AUTO) 26.7 %; MEAN CORPUSCULAR HEMOGLOBIN 32.2 pg (27.0-31.0); MEAN CORPUSCULAR HGB CONC 32.5 g/dL (32.0-36.0); MEAN CORPUSCULAR VOLUME 99.1 fL (81.0-99.0); MEAN PLATELET VOLUME 9.9 fL (7.9-10.8); MONOCYTES # (AUTO) 0.4 10^3/uL (0.0-1.0); MONOCYTES % (AUTO) 4.3 %; NEUTROPHILS # (AUTO) 5.8 10^3/uL (1.5-6.6); NEUTROPHILS % (AUTO) 66.7 %; PLT - PLATELET COUNT 252 10^3/uL (130-450); RED BLOOD COUNT 4.25 10^6/uL (4.20-5.40); RED CELL DISTRIBUTION WIDTH 13.4 % (12.0-15.0); WHITE BLOOD COUNT 8.7 x10^3/uL (4.8-10.8)
[2020-10-10 12:28] LABS: ALBUMIN 3.8 g/dL (3.2-5.5); ALBUMIN/GLOBULIN RATIO 1.1 (1.0-2.2); ALKALINE PHOSPHATASE 105 IU/L (42-121); ALT ALANINE AMINOTRANSFERASE 21 IU/L (10-60); AST ASPARTATE AMINOTRANSFERASE 18 IU/L (10-42); BILIRUBIN,TOTAL 0.8 mg/dL (0.2-1.0); BUN - BLOOD UREA NITROGEN 17 mg/dL (6-20); CALCIUM 8.9 mg/dL (8.5-10.3); CARBON DIOXIDE - CO2 26 mmol/L (21-32); CHLORIDE 105 mmol/L (101-111); CHOL/HDL RATIO 4.3 (<4.4); CHOLESTEROL 223 mg/dL; CREATININE 0.8 mg/dL (0.4-1.0); GLUCOSE 97 mg/dL (70-100); HDL CHOLESTEROL 52 mg/dL; LDL CHOLESTEROL,CALCULATED 148 mg/dL; LDL/HDL RATIO 2.8 (<4.4); SODIUM 136 mmol/L (135-145); TOTAL PROTEIN 7.3 g/dL (6.7-8.2); VLDL CHOLESTEROL 23 mg/dL
== END 2020-10-10 23:59 | disposition home or self-care (01) ==
LOC: LAB.WCP 08:20
PROVIDERS: ATTEND Family Medicine
DX: I10 Essential (primary) hypertension (principal); R53.82 Chronic fatigue, unspecified
CPT/HCPCS: 36415; 80053; 80061; 83721; 84443; 85025

== ENCOUNTER 2021-07-06 16:28 | Outpatient (CLI) | payer OTHER | END 2021-07-06 16:29 | disposition home or self-care (01) | LOC: COV 16:28 | PROVIDERS: ATTEND Family Medicine | DX: U07.1 COVID-19 (principal) ==

== ENCOUNTER 2021-10-30 08:00 | Outpatient (CLI) | payer OTHER ==
[2021-10-30 11:35] LABS: BASOPHILS % (AUTO) 0.3 %; EOSINOPHILS # (AUTO) 0.3 10^3/uL (0.0-0.7); EOSINOPHILS % (AUTO) 2.1 %; HCT - HEMATOCRIT 44.5 % (37.0-47.0); HGB - HEMOGLOBIN 15.2 g/dL (12.0-16.0); LYMPHOCYTES # (AUTO) 2.7 10^3/uL (1.5-3.5); LYMPHOCYTES % (AUTO) 21.9 %; MEAN CORPUSCULAR HEMOGLOBIN 34.2 pg (27.0-31.0); MEAN CORPUSCULAR HGB CONC 34.2 g/dL (32.0-36.0); MEAN CORPUSCULAR VOLUME 100.2 fL (81.0-99.0); MEAN PLATELET VOLUME 9.7 fL (7.9-10.8); MONOCYTES # (AUTO) 0.4 10^3/uL (0.0-1.0); MONOCYTES % (AUTO) 3.2 %; NEUTROPHILS % (AUTO) 71.9 %; PLT - PLATELET COUNT 257 10^3/uL (130-450); RED BLOOD COUNT 4.44 10^6/uL (4.20-5.40); RED CELL DISTRIBUTION WIDTH 12.7 % (12.0-15.0); WHITE BLOOD COUNT 12.5 x10^3/uL (4.8-10.8)
[2021-10-30 12:04] LABS: ALBUMIN 4.4 g/dL (3.2-5.5); ALBUMIN/GLOBULIN RATIO 1.2 (1.0-2.2); ALKALINE PHOSPHATASE 132 IU/L (42-121); ALT ALANINE AMINOTRANSFERASE 26 IU/L (10-60); AST ASPARTATE AMINOTRANSFERASE 18 IU/L (10-42); BILIRUBIN,TOTAL 0.5 mg/dL (0.2-1.0); BUN - BLOOD UREA NITROGEN 11 mg/dL (6-20); CALCIUM 9.4 mg/dL (8.5-10.3); CARBON DIOXIDE - CO2 27 mmol/L (21-32); CHLORIDE 100 mmol/L (101-111); CREATININE 0.9 mg/dL (0.4-1.0); GFR - MDRD 64 (>89); GLUCOSE 96 mg/dL (70-100); POTASSIUM 4.1 mmol/L (3.5-5.0); SODIUM 138 mmol/L (135-145); TOTAL PROTEIN 8.2 g/dL (6.7-8.2)
[2021-10-30 12:05] LABS: CRP - C-REACTIVE PROTEIN < 1.0 mg/dL (0-1.0)
== END 2021-10-30 23:59 ==
LOC: LAB.WCP 08:00
PROVIDERS: ATTEND Family Medicine
DX: G44.89 Other headache syndrome (principal)
CPT/HCPCS: 36415; 80053; 85025; 85651; 86140

== ENCOUNTER 2021-11-02 11:30 | Outpatient (CLI) | payer OTHER ==
[2021-11-02 18:01] LABS: BASOPHILS % (AUTO) 0.3 %; EOSINOPHILS % (AUTO) 2.1 %; HCT - HEMATOCRIT 43.9 % (37.0-47.0); HGB - HEMOGLOBIN 14.6 g/dL (12.0-16.0); MEAN CORPUSCULAR HEMOGLOBIN 33.7 pg (27.0-31.0); MEAN CORPUSCULAR HGB CONC 33.3 g/dL (32.0-36.0); MEAN CORPUSCULAR VOLUME 101.4 fL (81.0-99.0); MONOCYTES % (AUTO) 2.5 %; NEUTROPHILS % (AUTO) 69.6 %; PLT - PLATELET COUNT 238 10^3/uL (130-450); RED BLOOD COUNT 4.33 10^6/uL (4.20-5.40); RED CELL DISTRIBUTION WIDTH 12.9 % (12.0-15.0); WHITE BLOOD COUNT 10.5 x10^3/uL (4.8-10.8)
[2021-11-02 18:03] LABS: ABNORMAL LYMPHS % (MANUAL) 0 %; BAND NEUTROPHILS % (MANUAL) 0 %
[2021-11-02 19:26] LABS: EOSINOPHILS # (MANUAL) 0.3 10^3/uL (0-0.7); LYMPHOCYTES # (MANUAL) 2.9 10^3/uL (1.5-3.5); LYMPHOCYTES % (MANUAL) 26 %; REACTIVE LYMPHS % (MANUAL) 2 %
[2021-11-02 19:27] LABS: PLATELET ESTIMATE, MANUAL NORMAL (130-450,000) (NORMAL); PLATELET MORPHOLOGY NORMAL APPEARANCE (NORMAL); RBC MORPHOLOGY (MULTIPLE) NORMAL APPEARANCE (NORMAL); WBC MORPHOLOGY (MULTIPLE) NORMAL APPEARANCE (NORMAL)
[2021-11-02 19:28] LABS: DIFFERENTIAL COMMENT MANUAL DIFFERENTIAL; NEUTROPHILS # (MANUAL) 7.2 10^3/uL (1.5-6.6)
== END 2021-11-02 23:59 | disposition home or self-care (01) ==
LOC: LAB.WCP 11:30
PROVIDERS: ATTEND Family Medicine
DX: R74.8 Abnormal levels of other serum enzymes (principal); D72.829 Elevated white blood cell count, unspecified
CPT/HCPCS: 36415; 81599; 84075; 84080; 85025

== ENCOUNTER 2023-09-20 13:31 | Outpatient (CLI) | payer OTHER ==
--- NOTE | 2023-09-23 10:00 | Mammography Report ---
BILATERAL DIGITAL SCREENING MAMMOGRAM 3D/2D WITH EXAGGERATED CC: 09/20/2023 CLINICAL: Routine screening. Comparison is made to exams dated: 10/17/2018 mammogram and 04/06/2014 mammogram - [facility]. Both breasts are almost entirely fatty (category a/<25% glandular tissue). No significant masses, calcifications, or other findings are seen in either breast. There has been no significant interval change. IMPRESSION: NEGATIVE There is no mammographic evidence of malignancy. A 1 year screening mammogram is recommended. Based on the Tyrer Cuzick model (a risk assessment model) the patients lifetime risk is 6.3% and her 10 year risk is 2.7%. According to the ACR, ACS, and NCCN guidelines, an annual breast MRI exam isabella g with mammogram is recommended if the patients lifetime risk is 20% or greater. This exam was interpreted at Station ID: [id number]. NOTE: For mammograms, a report in lay terms will be sent to the patient. Approximately 15% of breast malignancies will not be visualized mammographically. In the management of a palpable breast mass, a negative mammogram must not discourage biopsy of a clinically suspicious lesion. Electronically Signed By: Mark Woodall M.D. aty/autumnrad:09/20/2023 18:41:13 letter sent: No_Letter ACR BI-RADS Category 1: Negative 3341F PARENCHYMAL PATTERN: (F) - The breast(s) demonstrate(s) diffuse fatty replacement. BI-RADS CATEGORY: (1) - 1 Mammogram [id number] 1 year screening LATERALITY: (B)
== END 2023-09-20 13:32 | disposition home or self-care (01) ==
LOC: DI 13:31
PROVIDERS: ATTEND Nurse Practitioner Family
DX: Z12.31 Encounter for screening mammogram for malignant neoplasm of breast (principal)

== ENCOUNTER 2024-01-27 09:52 | Outpatient (CLI) | payer OTHER ==
[2024-01-27 12:16] LABS: BASOPHILS % (AUTO) 0.4 %; EOSINOPHILS # (AUTO) 0.4 10^3/uL (0.0-0.7); EOSINOPHILS % (AUTO) 3.2 %; HCT - HEMATOCRIT 43.1 % (37.0-47.0); HGB - HEMOGLOBIN 13.9 g/dL (12.0-16.0); LYMPHOCYTES # (AUTO) 2.2 10^3/uL (1.5-3.5); LYMPHOCYTES % (AUTO) 19.4 %; MEAN CORPUSCULAR HEMOGLOBIN 32.2 pg (27.0-31.0); MEAN CORPUSCULAR HGB CONC 32.3 g/dL (32.0-36.0); MEAN CORPUSCULAR VOLUME 99.8 fL (81.0-99.0); MEAN PLATELET VOLUME 11.7 fL (7.9-10.8); MONOCYTES # (AUTO) 0.5 10^3/uL (0.0-1.0); MONOCYTES % (AUTO) 4.4 %; NEUTROPHILS # (AUTO) 8.1 10^3/uL (1.5-6.6); NEUTROPHILS % (AUTO) 72.2 %; PLT - PLATELET COUNT 199 10^3/uL (130-450); RED BLOOD COUNT 4.32 10^6/uL (4.20-5.40); RED CELL DISTRIBUTION WIDTH 12.9 % (12.0-15.0); WHITE BLOOD COUNT 11.3 x10^3/uL (4.8-10.8)
[2024-01-27 12:30] LABS: ESTIMATED AVERAGE GLUCOSE 97 mg/dL (70-100)
[2024-01-27 12:49] LABS: THYROID STIMULATING HORMONE 3.26 uIU/mL (0.34-5.60)
[2024-01-27 12:59] LABS: ALBUMIN 4.1 g/dL (3.2-5.5); ALBUMIN/GLOBULIN RATIO 1.4 (1.0-2.2); ALKALINE PHOSPHATASE 130 IU/L (42-121); ALT ALANINE AMINOTRANSFERASE 16 IU/L (10-60); AST ASPARTATE AMINOTRANSFERASE 13 IU/L (10-42); BILIRUBIN,TOTAL 0.4 mg/dL (0.2-1.0); BUN - BLOOD UREA NITROGEN 16 mg/dL (6-20); CALCIUM 9.9 mg/dL (8.5-10.3); CARBON DIOXIDE - CO2 29 mmol/L (21-32); CHLORIDE 103 mmol/L (101-111); CHOL/HDL RATIO 2.8 (<4.4); CHOLESTEROL 148 mg/dL; GFR - MDRD 56 (>89); GLUCOSE 90 mg/dL (74-104); HDL CHOLESTEROL 53 mg/dL; LDL CHOLESTEROL,CALCULATED 71 mg/dL; LDL/HDL RATIO 1.3 (<4.4); POTASSIUM 4.2 mmol/L (3.5-4.5); SODIUM 140 mmol/L (135-145); TOTAL PROTEIN 7.1 g/dL (6.4-8.9); TRIGLYCERIDES 119 mg/dL (48-352); VLDL CHOLESTEROL 24 mg/dL
== END 2024-01-27 09:53 | disposition home or self-care (01) ==
LOC: LAB.N 09:52
PROVIDERS: ATTEND Nurse Practitioner Family
DX: I10 Essential (primary) hypertension (principal); E78.5 Hyperlipidemia, unspecified; E66.01 Morbid (severe) obesity due to excess calories
CPT/HCPCS: 36415; 80053; 80061; 83036; 83721; 84443; 85025